=== PATIENT | female | born 2005 | race Hispanic/Latino ===

== ENCOUNTER 2023-09-17 02:23 | Inpatient (IN) | payer OTHER, SELFPAY ==
[2023-09-17] VITALS (175 sets, daily range): BP systolic 101–150; BP diastolic 44–93; PULSE 70–109; RESP 12–16; TEMP 36.8–38.2; O2SAT 90–100; BMI 36.6
[2023-09-17] MEDS: LACTATED RINGERS 1,000 ML 125 ML IV CONT ×2 (03:00→06:53)
--- NOTE | 2023-09-17 03:30 | P.PNAN_ITS ---
Anes - Initial Pre Proc Eval Procedure: Labor epidural Date/Time: 09/17/23 03:30 Surgeon: Adrien Coughlin MD Pre Op Diagnosis: Labor pain Pre Op Diagnosis: LABOR Patient Data Age: 18 Gender: F Height: 1.65 m Weight: 99.79 kg Last Vital Signs Pulse 79 09/17/23 03:15 BP 125/65 09/17/23 03:15 Allergies Allergy/AdvReac Type Severity Reaction Status Date / Time No Known Allergies Allergy Verified 08/13/23 12:15 Home Medications Medication Instructions Recorded Confirmed Type vit#24-iron amino acid 1 tablet PO DAILY 08/13/23 08/13/23 History chelat-folic acid 30 mg-975 mcg tablet Patient hx anesthesia problems: none Family hx anesthesia problems: none Results Review: All pre-operative results and documents have been reviewed as part of the pre- operative evaluation. [facility] Family History Family History Grandparent Hypertension Social History Social History Substance use: never Spiritual care concerns: No Anes - Eval Final PreProcedure Day of Procedure 09/17/23 03:30 Patient weight: normal Heart: regular rate and rhythm Neurological: alert and oriented ASA classification: II Anesthesia type and monitoring: regional epidural and standard monitoring Results Review: All pre-operative results and documents have been reviewed as part of the pre- operative evaluation. Informed Consent: The patient's anesthetic plan and its attendant risks and benefits were discussed with the patient/family/POA. Questions were solicited and answers pro vided to the satisfaction of the patient/family/POA.
[2023-09-17 03:38] LABS: Basophils Absolute Auto 0.1 K/mm3 (0.0-0.1); Basophils Percent Auto 0.4 % (0.2-1.2); Eosinophils Absolute Auto 0.1 K/mm3 (0-0.3); Eosinophils Percent Auto 0.8 % (0-4.4); Hematocrit 37.8 % (37.0-47.0); Hemoglobin 12.2 g/dL (12.0-15.0); Immature Granulocyte Absolute 0.24 K/mm3 (0.00-0.031); Immature Platelet Fraction Pct 14.5 % (0.9-11.2); Lymphocytes Absolute Auto 2.59 K/mm3 (0.9-3.2); Lymphocytes Percent Auto 21.2 % (18.3-44.2); Mean Corpuscular HGB Conc 32.3 g/dl (32-36); Mean Corpuscular Hemoglobin 27.7 pg (26-34); Mean Corpuscular Volume 85.9 fl (80-100); Mean Platelet Volume 13.5 fl (7.4-10.4); Monocytes Absolute Auto 1.1 K/mm3 (0.1-0.6); Monocytes Percent Auto 8.7 % (2.6-8.5); Neutrophils Absolute Auto 8.2 K/mm3 (1.3-6.7); Neutrophils Percent Auto 66.9 % (45.5-73.1); Platelet Count Result 227 k/mm3 (150-375); Red Cell Distribution Width 15.6 % (11.5-14.5); White Blood Count 12.2 K/mm3 (4.5-10.0)
--- NOTE | 2023-09-17 04:03 | WPDANESEPN ---
Anes - Epidural Procedure Note Date/Time: 09/17/23 04:03 Consent: I have discussed with the patient/family/POA, the placement of an epidural catheter and the use of epidural narcotic/local anesthetic for labor analgesia and/or postoperative pain management, including associated potential risks, benefits, complications and side effects. I have discussed alternative methods of labor analgesia and/or postoperative pain management. The patient/family/POA, understand(s) and wish(es) to proceed with epidural narcotic/local anesthetic for labor analgesia and/or postoperative pain management. Time-Out: A pre-procedural Time-Out was completed immediately before starting the procedure and confirmed: Patient Identification, Site, Procedure, Patient Position and the Availability of Requisite Equipment. Clinical Indications: Labor pain Epidural Insertion Note Patient position: sitting Skin prep: chlorhexidine and sterile drape Needle: 18g Tuohy-Schliff Catheter: 20g Unstyleted Technique: Loss of resistance. Level of insertion: L4/5 Catheter skin jessa (cm): 12 Length in epidural space (cm): 6 Skin anesthesia: lidocaine 1% Test dose: 1.5% Lidocaine with [id number] Epi, negative for subarachnoid Inj and negative for intravascular Inj Time of test dose: 03:50 Observations: tolerated well Complications: none
[2023-09-17] MEDS: AMPICILLIN 2 GM/NS 100 ML 2 GM/100 ML BAG IVPB ×3 (04:04→22:29)
[2023-09-17] MEDS: OXYTOCIN 30 UNITS/NS 500 ML 30 UNITS/500 ML BAG IV CONT (06:52)
--- NOTE | 2023-09-17 08:06 | WPDOBADMIT ---
Obstetrics - Admit Note Admission Note: record reviewed. No pertinent additions to the history and/or any subsequent changes in the physical findings that are not consistent with the expected course of the were found. Additions to the history and/or subsequent changes in the physical findings follow. PT arrived in labor, SROM /-1 AROM moderate amount of clear odorless fluid, anticipate vaginal delivery
[2023-09-17 11:03] LABS: Rapid Plasma Reagin Non-Reactive (NonReactive)
[2023-09-17] MEDS: miSOPROStol 200 MCG TABLET 1000 MCG RECTAL (11:08)
[2023-09-17] MEDS: METHYLERGONOVINE MALEATE 0.2 MG/ML VIAL IM (11:10)
[2023-09-17] MEDS: fentaNYL CITRATE INJ (*CRX) 100 MCG/2 ML VIAL IV PUSH (11:10)
[2023-09-17] MEDS: ceFAZolin 2 GM/D5W 50 ML 2 GM/50 ML BAG IVPB (11:28)
--- NOTE | 2023-09-17 11:29 | P.PCNOB_ITS ---
OB - Vaginal Delivery Note Procedure Delivery date: 09/17/23 Delivery augmentation: Rupture of Membranes Delivery monitor: External FHT and Internal FHT Route of delivery: Episiotomy description: None Laceration Description: Labial (right) Delivery repair: vicryl Specimen: No Quantitative Blood Loss (ml): 936 Anesthesia type: Epidural Disposition: Floor Narrative: team OB called, uterine atony after delivery of placenta,fundal massage, cytot ec, methergine, PHOEBE placed, hemostasis achieved and pt juliette well, VSS mother and baby in stable condition [place] Baby Date of : 09/17/23 Time of : 10:59 Weeks of gestation at delivery: 40 Infant gender: Male presentation: vertex position: Left Occiput Anterior Placenta delivery description: Spontaneous Cord Vessel Description: 3 Vessels and Delayed Cord Clamping score one minute: 8 score five minutes: 9
[2023-09-17 11:38] LABS: Basophils Percent Auto 0.2 % (0.2-1.2); Eosinophils Percent Auto 0.2 % (0-4.4); Hematocrit 35.6 % (37.0-47.0); Hemoglobin 11.1 g/dL (12.0-15.0); Immature Granulocyte Absolute 0.27 K/mm3 (0.00-0.031); Immature Granulocyte Percent A 1.6 % (0-0.5); Lymphocytes Absolute Auto 2.26 K/mm3 (0.9-3.2); Lymphocytes Percent Auto 13.5 % (18.3-44.2); Mean Corpuscular HGB Conc 31.2 g/dl (32-36); Mean Corpuscular Hemoglobin 27.4 pg (26-34); Mean Corpuscular Volume 87.9 fl (80-100); Mean Platelet Volume 12.5 fl (7.4-10.4); Neutrophils Absolute Auto 13.1 K/mm3 (1.3-6.7); Neutrophils Percent Auto 78.5 % (45.5-73.1); Platelet Count Result 244 k/mm3 (150-375); Red Blood Count 4.05 M/mm3 (4.2-5.4); Red Cell Distribution Width 15.9 % (11.5-14.5); White Blood Count 16.7 K/mm3 (4.5-10.0)
[2023-09-17 11:47] LABS: INR 0.9; Prothrombin Time 13.1 Seconds (11.1-14.7)
[2023-09-17 11:48] LABS: Fibrinogen 439 mg/dl (215-510); Partial Thromboplastin Time 26.1 SECONDS (22.3-36.8)
[2023-09-17] MEDS: OXYTOCIN 30 UNITS/NS 500 ML 30 UNITS/500 ML BAG 125 UNITS IV CONT (11:52)
[2023-09-17 11:58] LABS: Alanine Aminotransferase 19 U/L (6-35); Albumin Level 3.4 g/dL (3.5-5.1); Alkaline Phosphatase 190 U/L (38-126); Anion Gap 9 mmol/L (8-16); Aspartate Amino Transferase 30 U/L (14-36); Bilirubin,Total 0.3 mg/dL (0.2-1.3); Blood Urea Nitrogen 8 mg/dL (7-17); Calcium 8.6 mg/dL (8.4-10.2); Carbon Dioxide 19 mmol/L (22-30); Chloride 106 mmol/L (98-107); Estimated CRCL calculation 129 ml/min; Estimated Glomerular Filt Rate > 60; Glucose 91 mg/dL (65-110); Sodium 134 mmol/L (137-145)
[2023-09-17 12:09] LABS: D Dimer 1.66 ug/mL (<0.48)
[2023-09-17] MEDS: WITCH HAZEL 40 PADS 1 PAD TOPICAL (14:09)
[2023-09-17] MEDS: IBUPROFEN 600 MG TABLET PO (14:22)
--- NOTE | 2023-09-17 14:27 | OBPPTRN ---
Patient transferred to post room #290 via wheelchair. Support person present. Oriented to unit, room, information board, rooming in, admission packet and security measures. Patient verbalizes understanding.
--- NOTE | 2023-09-17 15:50 | PC.NURSE ---
Breast pump provided due to maternal preference. Instructions given on cleaning, care, usage, that there should be no pain, pumping schedule for milk production, collection, and storage of human milk. Patient was assessed for correct placement, flange size, to pump for comfort and nipple stretching/stimulation for adequate milk production every 3 hours (8 times in 24 hours) 1-2 times at night.
[2023-09-17] MEDS: CLINDAMYCIN 600 MG/D5W 50 ML 600 MG/50 ML PIGGYBACK 100 MG IVPB (17:00)
[2023-09-17] MEDS: DOCUSATE SODIUM 100 MG CAPSULE PO (17:00)
[2023-09-17] MEDS: ACETAMINOPHEN 325 MG TABLET 650 MG PO (17:00)
--- NOTE | 2023-09-17 18:24 | PM.OBPNLAB ---
Pain Control Date/time seen: 09/17/23 18:24 pt doing well, minimal bleeding on pad, cuff on PHOEBE deflated, 30 minutes later PHOEBE removed. bleeding stable and will continue to monitor, VSS
[2023-09-18] MEDS: CLINDAMYCIN 600 MG/D5W 50 ML 600 MG/50 ML PIGGYBACK 100 MG IVPB ×2 (02:20→10:43)
[2023-09-18] MEDS: AMPICILLIN 2 GM/NS 100 ML 2 GM/100 ML BAG IVPB ×2 (04:40→09:29)
[2023-09-18 07:45] VITALS: BP 123/76; PULSE 99; RESP 16; TEMP 36.8; O2SAT 99
[2023-09-18 07:47] LABS: Hematocrit 29.5 % (37.0-47.0); Hemoglobin 9.4 g/dL (12.0-15.0)
[2023-09-18 08:00] VITALS: PULSE 99; RESP 16; O2SAT 99
--- NOTE | 2023-09-18 08:53 | PM.OBPNVD ---
OB - PN: Subj Subjective Date/time seen: 09/18/23 08:53 Interval history: pp day 1 doing well bleeding minimal pain managed OB - PN: Obj Data Labs 09/18/23 07:42 09/17/23 11:32 Labs: Laboratory Results - last 24 hr 09/17/23 09/17/23 09/18/23 03:31 11:32 07:42 WBC 16.7 H RBC 4.05 L Hgb 11.1 L 9.4 L Hct 35.6 L 29.5 L MCV 87.9 MCH 27.4 MCHC 31.2 L RDW 15.9 H Plt Count 244 MPV 12.5 H Immature Gran % (Auto) 1.6 H Neut % (Auto) 78.5 H Lymph % (Auto) 13.5 L Finney % (Auto) 6.0 Eos % (Auto) 0.2 Baso % (Auto) 0.2 Lymph # (Auto) 2.26 Finney # (Auto) 1.0 H Eos # (Auto) 0.0 Baso # (Auto) 0.0 Abs Immat Gran (auto) 0.27 H Absolute Neuts (auto) 13.1 H Absolute Nucleated RBC 0.0 Nucleated RBC % 0.0 PT 13.1 INR 0.9 APTT 26.1 Fibrinogen 439 D-Dimer 1.66 H Sodium 134 L Potassium 4.0 Chloride 106 Carbon Dioxide 19 L Anion Gap 9 BUN 8 Creatinine 0.70 Estim Creat Clear Calc 129 Estimated GFR > 60 Glucose 91 Calcium 8.6 Total Bilirubin 0.3 AST 30 ALT 19 Alkaline Phosphatase 190 H Total Protein 7.0 Albumin 3.4 L RPR Non-reactive OB - PN A/P Plan day: 1 Plan: routine care Time Spent With Patient Time: Total time spent is greater than 50% in coordination of care (as documented) at patient's floor/unit and/or counseling patient: Review of Systems Review of Systems: All systems reviewed & are unremarkable except as noted in HPI and below Exam Const: General: cooperative, healthy appearing and comfortable Chest: Chest palpation & inspection: normal inspection of the chest Resp: Effort & Inspection: normal respiratory effort Cardio: Rate: regular rate GI: Other: soft Skin: General skin exam: normal color Neuro: General: patient oriented x3 Extrem: Right lower extremity: normal to inspection Left lower extremity: normal to inspection Psych: Appearance: grossly normal
[2023-09-18] MEDS: DOCUSATE SODIUM 100 MG CAPSULE PO ×2 (09:28→16:57)
[2023-09-18] MEDS: POLYSACCHARIDE IRON COMPLEX 150 MG CAPSULE PO ×2 (09:28→16:57)
[2023-09-18] MEDS: MULTIVIT/MIN/PREN/FOL AC/IRON TABLET 1 TAB PO (09:29)
--- NOTE | 2023-09-18 14:13 | WPDANLDPN2 ---
Anes-Prog Note L&D Date/Time: 09/18/23 14:13 Neuro status: Neuro function grossly intact. Vital Signs: Last Vital Signs Temp 36.8 C 09/18/23 07:45 Pulse 99 09/18/23 07:45 Resp 16 09/18/23 07:45 BP 123/76 09/18/23 07:45 Pulse Ox 99 09/18/23 07:45 O2 Del Method Room Air 09/17/23 14:40 Pain score (VAS): 0 I/O: Intake & Output 09/17/23 09/18/23 09/18/23 23:59 07:59 15:59 Intake Total 862.5 150 Balance 862.5 150 Patient feedback: Patient satisfied with anesthetic care.
--- NOTE | 2023-09-18 16:25 | PC.NURSE ---
0945 Attempted to see mom and baby about , but she was sleeping and the lights dimmed.
--- NOTE | 2023-09-18 16:28 | PC.NURSE ---
1525 Utilized the virtual major sales associate to introduce myself, then consulted with patient to assess needs related to . Mother was encouraged to express her?plans to feed?her and the?experience so far. Mother works well with her with encouragement and education. Encouraged understanding of the benefits of skin to skin (demonstrating unwrapping infant and placing upright on her chest), stimulating with massage touch, changing positions to encourage wakefulness, how to watch for early feeding cues, responsive feeding, feeding on demand (aiming for 8-12 times in 24 hours, about every 2-3 hours), milk production, building/maintaining a milk supply, duration of feeding, signs of adequate intake/output and how to record on the feeding sheet. Reviewed positioning and ear, shoulder, hip alignment, supporting the breast to facilitate a deep latch, asymmetrical latch (off-center), leading with the chin with a big, open, wide gape and body close to mother. latched optimally to both breasts in cross cradle position. Education given to mother of how to visualize suck/swallow ratios and listen for drinking at the breast. was able to maintain latch without discomfort to mother. Nipple care reviewed with optimal latch and good positioning. Reminding mother of comfort measures of healing with a warm and wet washcloth to rinse breast, then leave open to air-dry as needed. Reviewed good handwashing when or touching the breast/nipples to prevent infection. Resources used to facilitate learning were used with the visual handouts tool and mom and baby guide. Mother voiced understanding of skin to skin, stimulating with massage touch, responsive feedings, hand expressed colostrum, talking to to encourage if it has been 2 -2.5 hours since the start of the last , to call if does not latch, or if there is discomfort with . Resources provided for inpatient/outpatient with business card, feeding sheet and the mom/baby guide. Parents voiced understanding of information, demonstrated learning and will call if there is a request for assistance. Reported to primary RN.
[2023-09-18] MEDS: LANOLIN (LANSINOH) 7.5 GM CREAM 1 APPLIC TOPICAL (16:57)
[2023-09-18 20:10] VITALS: BP 118/72; PULSE 97; RESP 18; TEMP 36.8; O2SAT 99
[2023-09-19] MEDS: TETANUS,DIPHTHERIA,AC PERTUSSIS ADULT (0.5 ML) BOOSTRIX IM (05:02)
--- NOTE | 2023-09-19 07:44 | PM.OBPNVD ---
OB - PN: Subj Subjective Date/time seen: 09/19/23 07:44 Interval history: pp day 2 doing well bleeding minimal pain managed OB - PN: Obj Data Labs 09/18/23 07:42 09/17/23 11:32 Labs: Laboratory Results - last 24 hr 09/18/23 07:42 Hgb 9.4 L Hct 29.5 L OB - PN A/P Plan day: 2 Plan: routine care and discharge home Time Spent With Patient Time: Total time spent is greater than 50% in coordination of care (as documented) at patient's floor/unit and/or counseling patient: Review of Systems Review of Systems: All systems reviewed & are unremarkable except as noted in HPI and below Exam Const: General: cooperative and healthy appearing Resp: Effort & Inspection: normal respiratory effort Cardio: Rate: regular rate Skin: General skin exam: normal color Neuro: General: patient oriented x3 Extrem: Right lower extremity: normal to inspection Left lower extremity: normal to inspection
--- NOTE | 2023-09-19 07:54 | PM.OBDSVD ---
DS: Admitting Diagnosis Discharge Date 09/19/23 Admitting Diagnosis labor DS: Discharge Diagnosis Discharge Diagnosis (1) Vaginal delivery: Code(s): O80 - Encounter for full-term uncomplicated delivery Status: Acute OB - DS: Summary OB Procedures : None OB Procedures Intrapartum: Spontaneous Vag Delivery and Uterine exploration OB Procedures: : None Peripartum Data Laceration Description: Labial (right) Episiotomy description: None Time Spent with Patient Time attestation: Total time spent providing and/or coordinating discharge services: Discharge Plan Discharge Attending physician on discharge: Emory Vyas Discharging Clinician: Nila Jenkins Patient Disposition: Home, Self-Care Activity: pelvic rest Diet: regular Patient Instructions: Antibiotic Form Stand Alone Forms: General Discharge Information Follow-up/Referrals: Nila Jenkins CNM [Certified Nurse Office Automation Clerk] - 4 Weeks Discharge Medications: New ibuprofen 600 mg Tablet 600 mg PO Q6H PRN (Reason: Cramping) Qty: 30 0RF Continued Complete 30-975 mg-mcg Tablet 1 tablet PO DAILY hydroxyzine HCl 25 mg tablet 25 mg DAILY Date of admission: 09/17/23 02:23 Primary Care Provider: PHYSICIAN,WATER SAFETY TEACHER Admitting Provider: Emory Vyas Attending physician on admission: Emory Vyas Condition: Stable
[2023-09-19 08:00] VITALS: PULSE 67; RESP 16; O2SAT 100
[2023-09-19 09:15] VITALS: BP 111/60; PULSE 67; RESP 16; TEMP 37.1; O2SAT 100
[2023-09-19] MEDS: IBUPROFEN 600 MG TABLET PO (10:42)
[2023-09-19] MEDS: POLYSACCHARIDE IRON COMPLEX 150 MG CAPSULE PO (10:43)
[2023-09-19] MEDS: DOCUSATE SODIUM 100 MG CAPSULE PO (10:43)
[2023-09-19] MEDS: MULTIVIT/MIN/PREN/FOL AC/IRON TABLET 1 TAB PO (10:43)
[2023-09-19] MEDS: MEASLES,MUMPS,RUBELLA VACCINE 0.5 ML VIAL SUB-Q (12:29)
[2023-09-20 08:21] VITALS: BP 114/75; PULSE 91; RESP 18; TEMP 37.3; O2SAT 100
== END 2023-09-19 14:34 | disposition home or self-care (01) | DRG 560 ==
LOC: ANHLDR 11:59 → ANHOB2 09-19 07:45 → ANHLDR 09-22 08:31 → ANHOB2 09-22 08:31
PROVIDERS: Advanced Practice Midwife; Admitting Provider Obstetrics & Gynecology; Visit Provider Obstetrics & Gynecology
DX: O70.0 First degree perineal laceration during delivery (principal); Z37.0 Single live birth; Z3A.40 40 weeks gestation of pregnancy; Z23 Encounter for immunization
CPT/HCPCS: 36415; 80053; 85014; 85018; 85025; 85055; 85380; 85384; 85610; 85730; 86592; 86850; 86900; 86901; 90471; 90686; 90710; 90715; A9270; G0008; J0290; J0690; J1580; J2210; J2590; J2795; J3010; J7050; J7120